=== PATIENT | male | born 1980 | race American Indian/Alaskan Native ===

== ENCOUNTER 2019-07-24 16:56 | Emergency (ER) | payer SELFPAY ==
--- NOTE | 2019-07-24 17:44 | Event Note ---
ED Screening Note Date of service: 07/24/19 Time: 17:40 ED Screening Note: This is a 39 y.o. M. that presents to the ER with headache, dizziness, and blurred vision in right eye. Patient states he hit head on the zipline landing while attempting to stop while in [place] Wednesday. Reports loc witnessed by family and friends but not sure how long. Patient states he went to Urgent Care and told to follow up in ER. This initial assessment/diagnostic orders/clinical plan/treatment(s) is/are subject to change based on patients health status, clinical progression and re- assessment by fellow clinical providers in the ED. Further treatment and workup at subsequent clinical providers discretion. Patient/guardian urged not to elope from the ED as their condition may be serious if not clinically assessed and managed. Initial orders include: CT of head
[2019-07-24 17:45] VITALS: BP 114/68
--- NOTE | 2019-07-24 19:53 | Cat Scan Report ---
CT HEAD WITHOUT CONTRAST INDICATION / CLINICAL INFORMATION: headache, head injury. TECHNIQUE: All CT scans at this location are performed using CT dose reduction for ALARA by means of automated e xposure control. COMPARISON: None available. FINDINGS: HEMORRHAGE: No evidence of intracranial hemorrhage or extra-axial fluid collection. EXTRA-AXIAL SPACES: Cortical sulci, sylvian fissures and basilar cisterns have an unremarkable appear ance. VENTRICULAR SYSTEM: The ventricular system is of normal size and configuration. CEREBRAL PARENCHYMA: No areas of abnormal brain parenchymal attenuation are identified. There is no i ndication of recent infarction. MIDLINE SHIFT OR HERNIATION: There is no mass effect. CEREBELLUM / BRAINSTEM: Brainstem and cerebellum have an unremarkable appearance. INTRACRANIAL VESSELS:No abnormalities are identified on this noncontrast head CT. ORBITS: visualized portions of the orbits have an unremarkable appearance. SOFT TISSUES of HEAD: No significant abnormality. CALVARIUM: Evaluation of bone windows reveals no abnormalities. PARANASAL SINUSES / MASTOID AIR CELLS: Paranasal sinuses are free from inflammatory mucosal disease. Mastoid air cells are normally pneumatized. IMPRESSION: 1. No abnormalities are identified on head CT without contrast. Signer Name: Sarabjit Crenshaw MD Signed: 07/24/2019 7:49 PM Workstation Name: [id number]
--- NOTE | 2019-07-24 22:25 | XRay Report ---
LUMBAR SPINE 3 VIEWS INDICATION / CLINICAL INFORMATION: zipline injury, low back pain. COMPARISON: None available. FINDINGS: Mild degenerative change, with disc space narrowing and hypertrophic spurring at L1-2. No fracture or subluxation. Signer Name: Flo Pandya MD Signed: 07/24/2019 10:21 PM Workstation Name: [id number]
--- NOTE | 2019-07-24 22:26 | XRay Report ---
RIGHT LOWER LEG 4 VIEWS INDICATION / CLINICAL INFORMATION: zipline injury, anterior tib fib pain, ecchymosis. COMPARISON: None available. FINDINGS: No fracture or other significant abnormality. Signer Name: Flo Pandya MD Signed: 07/24/2019 10:22 PM Workstation Name: [id number]
--- NOTE | 2019-07-24 22:40 | Emergency Department Report ---
ED General Adult HPI - General Chief complaint: Back Pain/Injury Stated complaint: HEAD/BACK/SHOULDER PAIN Time Seen by Provider: 07/24/19 17:39 Source: patient Mode of arrival: Ambulatory Limitations: No Limitations - History of Present Illness Initial comments: Patient is a 39-year-old male who presents emergency room with complaints of a zipline injury that occurred 2 days ago. He states that he was ziplining in [place] 2 days ago. He states that he was coming to the end and hit the landing very fast. He states that his family said he lost consciousness for approximately 40 seconds. He states that he sustained an abrasion to his right upper eyelid. Patient states he has had a continuous headache, lightheadedness, right lower back pain, right lower leg pain. He states he briefly experienced numbness of the right foot which self resolved. He has been ambulatory without difficulty. He denies any further episodes of syncope, vomiting, no unilateral weakness, no vision changes, no speech disturbances, no other injury. He denies any past medical history or allergies medications. - Related Data Previous Rx's Medication Instructions Recorded Last Taken Type Cyclobenzaprine [Flexeril] 10 mg PO Q8H PRN #21 tablet 08/29/15 Unknown Rx HYDROcodone/APAP 5-325 [[place] 1 each PO Q6HR PRN #12 tablet 08/29/15 Unknown Rx 5/325] Ibuprofen [Motrin 800 MG tab] 800 mg PO Q8HR PRN #30 tablet 08/29/15 Unknown Rx Acetaminophen [Acetaminophen ER 650 mg PO Q8HR PRN #14 tablet.er 07/24/19 Unknown Rx TAB] Cyclobenzaprine [Flexeril] 10 mg PO QHS PRN #12 tablet 07/24/19 Unknown Rx SUMAtriptan succinate [Imitrex] 25 mg PO Q2HR PRN #10 tablet 07/24/19 Unknown Rx Allergies Allergy/AdvReac Type Severity Reaction Status Date / Time No Known Allergies Allergy Verified 08/29/15 21:29 ED Review of Systems ROS: Stated complaint: HEAD/BACK/SHOULDER PAIN Other details as noted in HPI Comment: All other systems reviewed and negative ED Past Medical Hx - Past Medical History Previous Medical History?: No - Surgical History Past Surgical History?: No - Social History Smoking Status: Never Smoker Substance Use Type: None - Medications Home Medications: Home Medications Medication Instructions Recorded Confirmed Last Taken Type Cyclobenzaprine [Flexeril] 10 mg PO Q8H PRN #21 tablet 08/29/15 Unknown Rx HYDROcodone/APAP 5-325 [[place] 1 each PO Q6HR PRN #12 tablet 08/29/15 Unknown Rx 5/325] Ibuprofen [Motrin 800 MG tab] 800 mg PO Q8HR PRN #30 tablet 08/29/15 Unknown Rx Acetaminophen [Acetaminophen ER 650 mg PO Q8HR PRN #14 tablet.er 07/24/19 Unknown Rx TAB] Cyclobenzaprine [Flexeril] 10 mg PO QHS PRN #12 tablet 07/24/19 Unknown Rx SUMAtriptan succinate [Imitrex] 25 mg PO Q2HR PRN #10 tablet 07/24/19 Unknown Rx ED Physical Exam - General Limitations: No Limitations General appearance: alert, in no apparent distress - Head Head exam: Present: normocephalic, other (small healed abrasion to the right upper eyelid) - Eye Eye exam: Present: normal appearance, PERRL, EOMI, other (small amount of ecchymosis to the right upper eyelid, no edema, no erythema, no signs of entrapement). Absent: periorbital tenderness - ENT ENT exam: Present: mucous membranes moist - Neck Neck exam: Present: normal inspection, full ROM. Absent: tenderness - Respiratory Respiratory exam: Present: normal lung sounds bilaterally. Absent: respiratory distress, wheezes, rales, rhonchi, stridor, chest wall tenderness, accessory muscle use, decreased breath sounds, prolonged expiratory - Cardiovascular Cardiovascular Exam: Present: regular rate, normal rhythm, normal heart sounds. Absent: systolic murmur, diastolic murmur, rubs, gallop - Extremities Exam Extremities exam: Present: other (ecchymosis present to the right anterior kohli, TTP over the right anterior kohli, no deformity, FROM of the right lower leg, neurovascularly intact) - Back Exam Back exam: Present: normal inspection, full ROM, paraspinal tenderness (right lumbar paraspinal muscular TTP, no ecchymosis, no midline C-spine, T-spine, or L-spine tenderness, no step offs, no deformities). Absent: vertebral tenderness - Neurological Exam Neurological exam: Present: alert, oriented X3, CN II-XII intact, normal gait, other (normal finger to nose, normal heel to kohli, equal can dragger strength, 5/5 strength in the BUE/BLE, sensation intact throughout, no focal neuro deficit). Absent: motor sensory deficit - Psychiatric Psychiatric exam: Present: normal affect, normal mood - Skin Skin exam: Present: warm, dry, intact ED Course Vital Signs 07/24/19 17:43 Temperature 98.6 F Pulse Rate 78 Respiratory 18 Rate Blood Pressure 114/68 O2 Sat by Pulse 100 Oximetry ED Medical Decision Making - Radiology Data Radiology results: report reviewed RIGHT LOWER LEG 4 VIEWS INDICATION / CLINICAL INFORMATION: zipline injury, anterior tib fib pain, ecchymosis. COMPARISON: None available. FINDINGS: No fracture or other significant abnormality. Signer Name: Flo Pandya MD Signed: 07/24/2019 10:22 PM Workstation Name: [id number] Transcribed By: TM Dictated By: Flo Pandya MD Electronically Authenticated By: Flo Pandya MD Signed Date/Time: 07/24/192221 DD/ 20 TD/TT: LUMBAR SPINE 3 VIEWS INDICATION / CLINICAL INFORMATION: zipline injury, low back pain. COMPARISON: None available. FINDINGS: Mild degenerative change, with disc space narrowing and hypertrophic spurring at L1-2. No fracture or subluxation. Signer Name: Flo Pandya MD Signed: 07/24/2019 10:21 PM Workstation Name: [id number] Transcribed By: TM Dictated By: Flo Pandya MD Electronically Authenticated By: Flo Pandya MD Signed Date/Time: 07/24/192220 DD/ 19 TD/TT: CT HEAD WITHOUT CONTRAST INDICATION / CLINICAL INFORMATION: headache, head injury. TECHNIQUE: All CT scans at this location are performed using CT dose reduction for ALARA by means of automated exposure control. COMPARISON: None available. FINDINGS: HEMORRHAGE: No evidence of intracranial hemorrhage or extra-axial fluid collection. EXTRA-AXIAL SPACES: Cortical sulci, sylvian fissures and basilar cisterns have an unremarkable appearance. VENTRICULAR SYSTEM: The ventricular system is of normal size and configuration. CEREBRAL PARENCHYMA: No areas of abnormal brain parenchymal attenuation are identified. There is no indication of recent infarction. MIDLINE SHIFT OR HERNIATION: There is no mass effect. CEREBELLUM / BRAINSTEM: Brainstem and cerebellum have an unremarkable appearance. INTRACRANIAL VESSELS:No abnormalities are identified on this noncontrast head CT. ORBITS: visualized portions of the orbits have an unremarkable appearance. SOFT TISSUES of HEAD: No significant abnormality. CALVARIUM: Evaluation of bone windows reveals no abnormalities. PARANASAL SINUSES / MASTOID AIR CELLS: Paranasal sinuses are free from inflammatory mucosal disease. Mastoid air cells are normally pneumatized. IMPRESSION: 1. No abnormalities are identified on head CT without contrast. Signer Name: Sarabjit Crenshaw MD Signed: 07/24/2019 7:49 PM Workstation Name: [id number] Transcribed By: Dictated By: Sarabjit Crenshaw MD Electronically Authenticated By: Sarabjit Crenshaw MD Signed Date/Time: 07/24/191948 DD/ 45 TD/TT: - Medical Decision Making Patient is a 39-year-old male who presents emergency room with complaints of a zipline injury that occurred 2 days ago. He states that he was ziplining in [place] 2 days ago. He states that he was coming to the end and hit the landing very fast. He states that his family said he lost consciousness for approximately 40 seconds. He states that he sustained an abrasion to his right upper eyelid. Patient states he has had a continuous headache, lightheadedness, right lower back pain, right lower leg pain. He states he briefly experienced numbness of the right foot which self resolved. He has been ambulatory without difficulty. He denies any further episodes of syncope, vomiting, no unilateral weakness, no vision changes, no speech disturbances, no other injury. He denies any past medical history or allergies medications. vitals are normal. on exam: small healed abrasion to the right upper eyelid, small amount of ecchymosis to the right upper eyelid, no edema, no erythema, no signs of entrapment, e cchymosis present to the right anterior kohli, TTP over the right anterior kohli, no deformity, FROM of the right lower leg, neurovascularly intact, right lumbar paraspinal muscular TTP, no ecchymosis, no midline C-spine, T-spine, or L-spine tenderness, no step offs, no deformities, normal finger to nose, normal heel to kohli, equal can dragger strength, 5/5 strength in the BUE/BLE, sensation intact through out, no focal neuro deficit. XR right lower leg: No fracture or other significant abnormality. XR L-spine: Mild degenerative change, with disc space narrowing and hypertrophic spurring at L1-2. No fracture or subluxation. CT head: 1. No abnormalities are identified on head CT without contrast. Patient's history consistent with possible concussion. Discussed postconcussion headaches with patient. Discussed radiology imaging with patient. Patient given prescription for Flexeril, Imitrex, Tylenol. Advised patient Please take medication as prescribed as needed. Do not drive or operate heavy machinery while taking muscle relaxer. May use ice pack, heating pad, rest, epsom salt bath. Follow-up with a primary care doctor in the next 2 days for reexamination. Return to the emergency room immediately for any new or worsening symptoms. - Differential Diagnosis concussion, ICH, SDH, fx, sprain, strain, dislocation, disc herniation Critical care attestation.: If time is entered above; I have spent that time in minutes in the direct care of this critically ill patient, excluding procedure time. ED Disposition Clinical Impression: Pain in right lower leg Concussion Qualifiers: Encounter type: initial encounter Loss of consciousness presence/duration: with LOC of 30 min or less Qualified Code(s): S06.0X1A - Concussion with loss of consciousness of 30 minutes or less, initial encounter Eyelid abrasion Qualifiers: Encounter type: initial encounter Laterality: right Qualified Code(s): S00.211A - Abrasion of right eyelid and periocular area, initial encounter Low back strain Qualifiers: Encounter type: initial encounter Qualified Code(s): S39.012A - Strain of muscle, fascia and tendon of lower back, initial encounter Disposition: DC TO HOME OR SELFCARE Is pt being admited?: No Does the pt Need Aspirin: No Condition: Stable Instructions: Concussion (ED), Low Back Strain (ED), Abrasion (ED) Additional Instructions: Please take medication as prescribed as needed. Do not drive or operate heavy machinery while taking muscle relaxer. May use ice pack, heating pad, rest, epsom salt bath. Follow-up with a primary care doctor in the next 2 days for reexamination. Return to the emergency room immediately for any new or worsening symptoms. Prescriptions: Cyclobenzaprine [Flexeril] 10 mg PO QHS PRN #12 tablet PRN Reason: Muscle Spasm Acetaminophen [Acetaminophen ER TAB] 650 mg PO Q8HR PRN #14 tablet.er PRN Reason: moderate headache SUMAtriptan succinate [Imitrex] 25 mg PO Q2HR PRN #10 tablet PRN Reason: severe headache Referrals: DOUG LITTLE MD [Primary Care Provider] - 2-3 Days Time of Disposition: 22:42 Print Language: MALAY
== END 2019-07-24 22:55 | disposition home or self-care (01) ==
LOC: ED 16:56
DX: S06.0X1A Concussion with loss of consciousness of 30 minutes or less, initial encounter (principal); S39.012A Strain of muscle, fascia and tendon of lower back, initial encounter; Z79.1 Long term (current) use of non-steroidal anti-inflammatories (NSAID); Z79.899 Other long term (current) drug therapy; W22.8XXA Striking against or struck by other objects, initial encounter; Y93.89 Activity, other specified; Y92.89 Other specified places as the place of occurrence of the external cause; Y99.8 Other external cause status
CPT/HCPCS: 70450; 72100